=== PATIENT | male | born 1980 | race Asian ===

== ENCOUNTER → 2016-08-28 | Outpatient (CLI) | payer MEDICAID ==
--- NOTE | ~2016-08-28 | CR181 ---
[facility] A Service of [facility] & [facility] RADIOLOGY TEXT RESULTS PATIENT: JERRY VOSS THAN LOCATION: [facility] : 76 UNIT #: [id number] AGE: [address]: NOLA RAMIRES MD SEX: M ORDER DR: [id number] [facility] [address] [place], [place] [address] [id number] O MR#: [id number] Acc #: [id number] NAME: JERRY VOSS : 1980 SEX: M STUDY DATE/TIME: 08/28/2016 17:00 UNIT: [facility] ROOM: STUDY DESCRIPTION: CR Lumbar Spine 2 or 3 Views Attending Physician: Nola Ramires M.D. Referring Physician: Nola Ramires M.D. Ordering Physician: Nola Ramires M.D. Primary Care Physician: Nola Ramires M.D. MEDICAL IMAGING REPORT This report is preliminary unless electronic signature is present EXAM Lumbar spine series. HISTORY Chronic back pain daily for the past 6 months. TECHNIQUE 3 views of the lumbar spine were obtained. FINDINGS There is minimal disc space narrowing with small osteophytes at L2-3. Alignment is normal. No fractures or destructive bone lesions are seen. Posterior facets are intact. No pars defects are seen. The pedicles are congenitally short in the lower lumbar spine with a narrow AP diameter of the spinal canal noted. IMPRESSION Congenitally narrow lower lumbar spinal canal. Minimal degenerative disc disease at L2-3. No acute bony abnormalities. Dictated by... Hayden Painter M.D. THIS IS AN ELECTRONICALLY VERIFIED REPORT Hayden Painter M.D. at 08/28/2016 10:18 PM ARMAND/sanford TD: 08/28/2016 19:41 JOB #: [id number] MEDICAL IMAGING REPORT Page 1 of 1 COPY
== END | disposition home or self-care (01) ==
LOC: CRAD 16:33
DX: M54.5 Low back pain (principal); M51.36 Other intervertebral disc degeneration, lumbar region
CPT/HCPCS: 72100